=== PATIENT | female | born 1930 | race Caucasian/White ===

== ENCOUNTER → 2016-12-09 | Outpatient (CLI) | payer BC ==
[~2016-12-09] MED LIST: AMLO-114 PO; CALC500C70 PO; IBUP-1050 PO; MULT-506 PO; RANI150T3 PO
[2016-12-09 18:12] LABS: URINE APPEARANCE CLEAR (CLEAR); URINE BILIRUBIN NEG (NEG); URINE COLOR YELLOW; URINE NITRITE NEG (NEG); URINE PH 6.5 (4.5-7.5); URINE SPECIFIC GRAVITY 1.012 (1.000-1.030); UROBILINOGEN NEG (NEG)
[2016-12-09 18:20] LABS: MANUAL MICROSCOPIC REQUIRED? NO; REVIEW REQ? NO
== END | disposition home or self-care (01) ==
LOC: C.LABMFLN 13:42
PROVIDERS: ATTEND Family Medicine
DX: N39.0 Urinary tract infection, site not specified (principal)

== ENCOUNTER → 2016-12-14 | Outpatient (CLI) | payer BC ==
[~2016-12-14] MED LIST changes: +ASPEC81 PO; +CLB200 PO; +ONDA8TAB6 PO; +POLYSOL4 OP; +PSYL0.524 PO; +RXC5 PO; +SNK PO
[2016-12-14 14:02] LABS: BLOOD UREA NITROGEN 12 mg/dl (7-18); BUN/CREATININE RATIO 15.9 (10-20); CALCIUM 9.3 mg/dl (8.5-10.1); CARBON DIOXIDE 28 mmol/L (21-32); CHLORIDE 104 mmol/L (98-107); CHOLESTEROL 201 mg/dl (0-200); CREATININE 0.73 mg/dl (0.60-1.20); GLUCOSE 92 mg/dl (70-99); POTASSIUM 3.8 mmol/L (3.5-5.1); SODIUM 139 mmol/L (136-145)
[2016-12-14 14:06] LABS: HDL CHOLESTEROL 68 mg/dl; LDL CHOLESTEROL CALCULATED 112 mg/dl; TRIGLYCERIDES 105 mg/dl (0-150); VERY LOW DENSITY LIPOPROT CALC 21 mg/dl
== END | disposition home or self-care (01) ==
LOC: C.LABMFLN 07:39
PROVIDERS: ATTEND Family Medicine
DX: I10 Essential (primary) hypertension (principal)

== ENCOUNTER 2016-12-17 04:47 | Inpatient (IN) | payer BC, OTHER ==
--- NOTE | 2016-11-18 13:53 | PAT Medication Instructions ---
Service Date Nov 18, 2016. Current Home Medication List Amlodipine (Norvasc), 10 MG PO QAM Calcium/Vitamin D (Os-Shlomo 500 Plus D), 1 TAB PO BID Ibuprofen (Advil), 200 MG PO BID Multivitamin (Multivitamin), 1 TAB PO QAM Ranitidine Hcl (Zantac), 75 MG PO UD PRN for ACID REFLUX Medication Instructions For Your Scheduled Surgery - Check with surgeon for instructions: Ibuprofen (Advil), 200 MG PO BID - Hold the following medications the morning of surgery: Calcium/Vitamin D (Os-Shlomo 500 Plus D), 1 TAB PO BID Multivitamin (Multivitamin), 1 TAB PO QAM Ranitidine Hcl (Zantac), 75 MG PO UD PRN for ACID REFLUX - Take the following medications the morning of surgery with a sip of water: Amlodipine (Norvasc), 10 MG PO QAM - Take the following medications as scheduled the night before surgery: Ranitidine Hcl (Zantac), 75 MG PO UD PRN for ACID REFLUX (if needed) Calcium/Vitamin D (Os-Shlomo 500 Plus D), 1 TAB PO BID (if needed) If you have any questions please call us at [phone] or [phone] or [phone]
--- NOTE | 2016-11-18 14:25 | DIAGNOSTIC IMAGING REPORT ---
CHEST PREADMISSION(PA/LAT) HISTORY: 86 years-old Female PAT preadmission exam. No acute chest complaints. COMPARISON: None available TECHNIQUE: Frontal and lateral views of the chest FINDINGS: Cardiomediastinal and hilar silhouettes are within normal limits. There is no pneumothorax, pleural effusion, focal airspace consolidation or overt pulmonary edema. There is mild right hemidiaphragmatic elevation. There is atherosclerosis of the aorta. Degenerative changes involve the shoulders and spine. There is convex left curvature of the lumbar spine. IMPRESSION: No acute cardiopulmonary process. The above report was generated using voice recognition software. It may contain grammatical, syntax or spelling errors. Electronically signed by: Adan Do M.D. 11/18/2016 2:24 PM Dictated Date/Time: 11/18/2016 2:23 PM
[2016-11-18 14:34] LABS: BASO % 0.5 %; BASO ABS # 0.03 K/uL (0-0.2); COMPLETE YES; EOS % 2.9 %; HEMATOCRIT 42.4 % (37-47); IG% 0.2 %; LYMPH % 31.2 %; LYMPH ABS # 1.83 K/uL (1.2-3.4); MEAN CORPUSCULAR HEMOGLOBIN 29.4 pg (25-34); MEAN CORPUSCULAR HGB CONC 34.2 g/dl (32-36); MEAN PLATELET VOLUME 10.9 fL (7.4-10.4); MONO % 11.4 %; NEUT % 53.8 %; PLATELET COUNT 166 K/uL (130-400); RED BLOOD COUNT 4.93 M/uL (4.2-5.4); WHITE BLOOD COUNT 5.87 K/uL (4.8-10.8)
[2016-11-18 14:42] LABS: URINE APPEARANCE CLEAR (CLEAR); URINE BILIRUBIN NEG (NEG); URINE COLOR YELLOW; URINE NITRITE NEG (NEG); URINE PH 6.5 (4.5-7.5); URINE SPECIFIC GRAVITY 1.016 (1.000-1.030); UROBILINOGEN NEG (NEG); ZZUR CULT IF INDIC CLEAN CATCH NO
[2016-11-18 14:45] LABS: MANUAL MICROSCOPIC REQUIRED? NO; REVIEW REQ? NO
[2016-11-18 14:53] LABS: PROTHROMBIN TIME (PATIENT) 10.2 SECONDS (9.0-12.0)
[2016-11-18 14:58] LABS: BUN/CREATININE RATIO 14.4 (10-20); CALCIUM 9.6 mg/dl (8.5-10.1); CREATININE 0.8 mg/dl (0.60-1.20); POTASSIUM 3.6 mmol/L (3.5-5.1)
[2016-11-19 06:45] LABS: ESTIMATED AVERAGE GLUCOSE 111 mg/dl; HA1C FLAG Normal (Normal)
--- NOTE | 2016-12-14 17:40 | History and Physical ---
History & Physical Date Dec 14, 2016. Chief Complaint Right knee pain History of Present Illness The patient is a 86 year old female with complaints of Right knee pain. She states the pain has been going on for some time. She has tried cortisone injections, physical therapy and NSAIDs with no relief. She would like to proceed with a right total knee arthroplasty. Past Medical/Surgical History PMHx: Hypertension, Osteoarthritis, GERD PSHx: Bladder surgery Additional History Hepatic Disease: No Endocrine Disorder: No Kidney Disease: No Hypertension: Yes Heart Disease: No Bleeding Tendencies: No Infectious Diseases: No Allergies Coded Allergies: No Known Allergies (Unverified , 11/18/16) Home Medications Scheduled Amlodipine (Norvasc), 10 MG PO QAM Calcium/Vitamin D (Os-Shlomo 500 Plus D), 1 TAB PO BID Ibuprofen (Advil), 200 MG PO BID Multivitamin (Multivitamin), 1 TAB PO QAM Scheduled PRN Ranitidine Hcl (Zantac), 75 MG PO UD PRN for ACID REFLUX Physical Examination Skin: warm/dry, no rash Eyes: normal inspection, EOMI ENT: normal ENT inspection Head: normocephalic, atraumatic Neck: supple, no adenopathy Respiratory/Chest: lungs clear, normal breath sounds Cardiovascular: regular rate, rhythm, no murmur Abdomen / GI: normal bowel sounds Extremities: normal inspection, + pertinent finding (ROM 0-90. Medial joint line tenderness, ligaments are intact) Neurologic/Psych: no motor/sensory deficits, alert, oriented x 3 Diagnosis Primary osteoarthritis of the right knee Plan of Treatment Patient is scheduled for a right total knee arthroplasty. She has failed conservative therapies which include cortisone injections, PT, and NSAIDs. She would like to proceed with a right total knee arthroplasty. Risks and benefits were discussed with the patient. Patient understands the risks of surgery and she would like to proceed. All questions were answered to her satisfaction. She will be on aspirin 81mg BID for DVT prophylaxis and would like to go home with home health.
[2016-12-17] VITALS (10 sets, daily range): BP systolic 117–151; BP diastolic 63–74; PULSE 72–80; TEMP 36.3–36.5; O2SAT 95–100; Ht 147.3 cm; Wt 66.0 kg
[~2016-12-17] VITALS: Ht 147.3 cm; Wt 66.0 kg
[~2016-12-17 04:47] MED LIST changes: -ASPEC81 PO; -CLB200 PO; -ONDA8TAB6 PO; -POLYSOL4 OP; -PSYL0.524 PO; -RXC5 PO; -SNK PO
[2016-12-17] MEDS ORDERED: POLYSOL4 OP (05:54)
[2016-12-17] MEDS ORDERED: PSYL0.524 PO (05:55)
[2016-12-17] MEDS ORDERED: METOCLOPRAMIDE HCL 10 MG TAB PO SCH (06:00)
[2016-12-17] MEDS ORDERED: OXYCODONE HCL 10 MG TABCR (OXYCONTIN) PO SCH (06:00)
[2016-12-17] MEDS ORDERED: CeleBREX 200 MG CAP PO SCH (06:00)
[2016-12-17] MEDS ORDERED: LACTATED RINGER'S 1000ML 1,000 ML IV SCH (06:00)
[2016-12-17] MEDS ORDERED: FAMOTIDINE 20 MG TAB PO SCH (06:00)
[2016-12-17] MEDS ORDERED: CEFAZOLIN 1000MG IV PUSH 5 ML IV SCH (06:00)
[2016-12-17] MEDS ORDERED: LACTATED RINGER'S 1000ML IV SCH (06:00)
[2016-12-17] MEDS ORDERED: DEXAMETHASONE 4 MG TAB PO SCH (06:00)
[2016-12-17] MEDS ORDERED: GABAPENTIN 300 MG CAP PO SCH (06:00)
[2016-12-17] MEDS ORDERED: ROPIVACAINE 5MG/ML 30 ML 150 MG, BUPIVACAINE/EPINEPHR 0.5% MPF 30 ML, KETOROLAC TROMETH... INFIL SCH ×7 (06:00)
[2016-12-17] MEDS ORDERED: ACETAMINOPHEN 500 MG TAB PO SCH (06:00)
[2016-12-17] MEDS ORDERED: LACTATED RINGER'S 1000ML 500 ML IV ONE (06:00)
[2016-12-17] MEDS ORDERED: LIDOCAINE HCL 2% 2 ML VIAL (20MG/ML) ONE (06:20)
[2016-12-17] MEDS ORDERED: PROPOFOL IV EMULSION 10 MG/ML 20 ML VIAL IV ONE (06:20)
[2016-12-17] MEDS ORDERED: MIDAZOLAM HCL 1 MG/ML 2ML VIAL ONE ×2 (06:21→07:40)
[2016-12-17] MEDS ORDERED: BUPIVACAINE 0.5 % 5 MG/1 ML PF 10ML VIAL ONE (06:36)
[2016-12-17] MEDS: TRANEXAMIC ACID INJ 1,000 MG in SODIUM CHLORIDE 0.9% 100ML 100 ML IV SCH ×2 (06:56→10:47)
[2016-12-17] MEDS ORDERED: ORTHO JOINT ANESTHETIC ONE (06:58)
[2016-12-17] MEDS ORDERED: BACITRACIN 50000 UNIT VIAL ONE (06:58)
[2016-12-17] MEDS ORDERED: POVIDONE-IODINE OP SOLN 30 ML BTL ONE (06:58)
--- NOTE | 2016-12-17 07:04 | History & Physical Bridge Note ---
H&P Re-Evaluation Bridge Note: I have examined the patient, reviewed the History & Physical and in the interval since the performance of the History & Physical I have noted the following changes of clinical significance: No changes noted
[2016-12-17] MEDS ORDERED: EpHEDrine SULFATE 50MG/5ML SYR ONE (08:35)
--- NOTE | 2016-12-17 08:54 | [facility] Operative Report ---
Operative Report Operative Date Dec 17, 2016. Pre-Operative Diagnosis Primary osteoarthritis of right knee Post-Operative Diagnosis same as pre-operative Procedure(s) Performed Right total knee arthroplasty-cemented Surgeon Dr. Mcdonald Sailing Master Surgeon(s) JIGNA Mercado Estimated Blood Loss 20ml Findings ABOVE Specimens Specimen A: Right knee bone and tissue Drains 2 hemovac Anesthesia spinal Complication(s) None Disposition Recovery Room / PACU Indications 86 yo female with long-standing osseous surgeries right knee. She valgus deformity approximately 15. She is [id number] lateral compartment. She still conservative measures including anti-inflammatories, cortisone injection, rehabilitation. She is to proceed with a right total knee arthroplasty. Description of Procedure Risks benefits and alternatives of surgery including but not limited to infection, DVT, pain, stiffness, need for surgery, damage to blood vessels, damage to nerves or risks of anesthesia were discussed with the patient and they wished to proceed. The patient was identified and the laterality was confirmed and marked. They received a preoperative antibiotic as well as a spinal anesthetic and an abductor canal block. A well-padded tourniquet was applied and then the limb was prepped and draped in standard manner with ChloraPrep. The limb was exsanguinated and the tourniquet was inflated. I made a standard anterior incision. I sharply incised the skin then utilized Bovie electrocautery as well as the aqua mantis to achieve hemostasis. I made a medial parapatellar arthrotomy immobilized the patella laterally. I then excised the anterior horns of the medial and lateral meniscus as well as the infrapatellar fat pad. I elevated a portion of the MCL off of the tibia. I then pinned into place a patient-matched distal femoral cutting guide and made my distal femoral resection. I then pinned into place the 5 in 1 femoral cutting guide. The initial femoral cut was a little shallow so we added a distal femoral cutting guide and took an additional 2 mm to get into the trochlear groove. I made my anterior, posterior and chamfer cuts. I then excised the cruciates and the remaining portions of the menisci. I then pinned into place a patient- matched tibial cutting guide and made my tibial resection. I then pinned into place the tibial plate a utilizing alignment eunice to confirm rotation. The tibia cut I felt was a little bit and valgus so we took an external tibial cutting guide and a revision cut. I then checked my alignment once again and needed to take just a little bit more off the lateral side and now satisfied that we had good straight cut and good alignment to the tibia. I then cut for the post. Utilizing a lamina boat camp operator and I then removed posterior osteophytes off the femur. I then placed a trial femur into position and cut for the trochlear component. I then sequentially trialed to size the polyethylene until there was good soft tissue balancing and range of motion. She was rather lax on the medial side due to her prior large valgus deformity and needed to use a constrained liner to give her appropriate stability. I then prepared the patella with a freehand cut utilizing sagittal saw. I sized and drilled for the patella. There was good tracking to the patella no lateral release was needed. All the trial components were removed. The deep tissues were anesthetized with an ortho mix solution. Then with Simplex HV with gentamicin cement, I cemented my definitive components. Definitive components, Andino and Nephew Katelyn 2: Femur 3 Tibia 3 Poly 15 constrained Patella 29 oval A betadine soak was performed. A deep drain was placed. The arthrotomy was closed with interrupted #1 Vicryl suture subcutaneous tissue was closed with interrupted 2-0 Vicryl suture. The skin was closed with with Prineo adelso. A Prevena wound VAC was placed. A Silverlon was placed. Sterile dressings were applied. All needle and sponge counts were correct at the end of the procedure patient was transferred to the PACU in stable condition without apparent complication. The PA-C was necessary for assistance with procedure for assistance in positioning, prepping, draping, retraction and closure. I attest to the content of the Intraoperative Record and any orders documented therein. Any exceptions are noted below.
[2016-12-17] MEDS ORDERED: ONDANSETRON INJ 2 MG/ML 2 ML VIAL IV PRN ×2 (09:00→09:45)
[2016-12-17] MEDS ORDERED: ATROPINE SULFATE 0.1 MG/ML 5ML SYR IV PRN (09:00)
[2016-12-17] MEDS ORDERED: FENTANYL CITRATE INJ 50 MCG/1 ML 2 ML VIAL IV PRN (09:00)
[2016-12-17] MEDS ORDERED: EpHEDrine SULFATE INJ 50 MG/ML AMP IV PRN (09:00)
[2016-12-17] MEDS ORDERED: D5W AND 1/2NSS + 20MEQ KCL 1,000 ML IV SCH (09:31)
[2016-12-17] MEDS ORDERED: SOD PHOSPHATE/SOD BIPHOSPHATE ENEMA 132 ML BTL PR PRN (09:45)
[2016-12-17] MEDS ORDERED: MoRPHine SULFATE 2 MG/ML CARP IV PRN (09:45)
[2016-12-17] MEDS ORDERED: BISACODYL 10 MG SUPP PR PRN (09:45)
[2016-12-17] MEDS ORDERED: MAGNESIUM HYDROXIDE SUSP 30 ML UDC PO PRN (09:45)
[2016-12-17] MEDS ORDERED: ZOLPIDEM TARTRATE 5 MG TAB PO PRN (09:45)
[2016-12-17] MEDS ORDERED: ALUMINUM/MAGNESIUM/SIMETH (MAALOX MAX) 30 ML UDC PO PRN (09:45)
[2016-12-17] MEDS ORDERED: RANITIDINE HCL 150 MG TAB PO PRN (09:45)
--- NOTE | 2016-12-17 10:01 | DIAGNOSTIC IMAGING REPORT ---
RIGHT KNEE 2 VIEWS History: Right total knee arthroplasty. Degenerative arthritis. Postop. FINDINGS: The patient is status post a right total knee arthroplasty. The hardware is intact. No fracture or dislocation. Skin adelso and surgical drains are in place. IMPRESSION: Right total knee arthroplasty. No evidence for hardware complication. Electronically signed by: Luiz Jj M.D. 12/17/2016 9:59 AM Dictated Date/Time: 12/17/2016 9:59 AM
--- NOTE | 2016-12-17 10:42 | Anesthesiology Progress Note ---
Anesthesia Post Op Note Date & Time Dec 17, 2016 at 10:41 Vital Signs Pain Intensity: 0 Vital Signs Past 12 Hours Date Time Temp Pulse Resp B/P (MAP) Pulse Ox O2 Delivery O2 Flow Rate FiO2 12/17/16 10:19 36.4 73 13 117/64 (81) 99 Nasal Cannula 2.0 12/17/16 10:00 36.3 71 12 116/52 97 Nasal Cannula 2 12/17/16 09:50 79 17 118/57 98 Nasal Cannula 2 12/17/16 09:40 80 12 131/53 100 Nasal Cannula 2 12/17/16 09:31 36.5 76 16 116/52 98 Nasal Cannula 2 12/17/16 05:40 36.5 76 20 146/63 98 Room Air Notes Mental Status: alert / awake / arousable, participated in evaluation Pt Amnestic to Procedure: Yes Nausea / Vomiting: adequately controlled Pain: adequately controlled Airway Patency, RR, SpO2: stable & adequate BP & HR: stable & adequate Hydration State: stable & adequate Neuraxial Anesthesia: was administered, sensory block is resolving Anesthetic Complications: no major complications apparent
[2016-12-17] MEDS: SODIUM CHLORIDE 0.9% 1000ML 1,000 ML IV SCH ×2 (11:49→21:28)
[2016-12-17] MEDS: FERROUS GLUCONATE 324 MG TAB PO SCH ×2 (11:58→18:37)
[2016-12-17] MEDS: CEFAZOLIN IV 1,000 MG in SYRINGE 0 ML IV SCH (16:18)
[2016-12-17] MEDS: OXYCODONE HCL IR 5 MG TAB (IMMEDIATE RELEASE) PO PRN (18:38)
[2016-12-17] MEDS: DOCUSATE SODIUM 100 MG CAP PO SCH (21:27)
[2016-12-17] MEDS: CeleBREX 200 MG CAP PO SCH (21:27)
[2016-12-17] MEDS: OXYCODONE HCL 10 MG TABCR (OXYCONTIN) PO SCH (21:27)
[2016-12-17] MEDS: ASPIRIN 81 MG ECTAB PO SCH (21:27)
[2016-12-17] MEDS: CALCIUM 600MG + VIT D 400 IU TAB PO SCH (21:27)
[2016-12-17] MEDS: SENNA 8.6 MG TAB PO SCH (21:28)
[2016-12-18] VITALS (7 sets, daily range): BP systolic 66–133; BP diastolic 36–67; PULSE 72–86; TEMP 36.2–37.1; O2SAT 96–99
[2016-12-18] MEDS: CEFAZOLIN IV 1,000 MG in SYRINGE 0 ML IV SCH (00:28)
[2016-12-18 06:08] LABS: HEMATOCRIT 30.7 % (37-47); MEAN CELL VOLUME 85.8 fL (80-100); MEAN CORPUSCULAR HEMOGLOBIN 28.5 pg (25-34); MEAN CORPUSCULAR HGB CONC 33.2 g/dl (32-36); MEAN PLATELET VOLUME 10.9 fL (7.4-10.4); PLATELET COUNT 122 K/uL (130-400); RED BLOOD COUNT 3.58 M/uL (4.2-5.4); WHITE BLOOD COUNT 12.18 K/uL (4.8-10.8)
[2016-12-18 06:12] LABS: PROTHROMBIN TIME (PATIENT) 10.9 SECONDS (9.0-12.0)
[2016-12-18 06:51] LABS: BUN/CREATININE RATIO 18.6 (10-20); CALCIUM 8.5 mg/dl (8.5-10.1); CREATININE 0.61 mg/dl (0.60-1.20); POTASSIUM 3.7 mmol/L (3.5-5.1)
[2016-12-18] MEDS: SODIUM CHLORIDE 0.9% 1000ML 1,000 ML IV SCH (07:30)
--- NOTE | 2016-12-18 08:32 | Orthopedic Progress Note ---
Orthopedic Progress Note Date of Service Dec 18, 2016. Subjective Post OP Day: 1 Reports: feeling well, Denies: chest pain, SOB, nausea / vomiting, light headedness, calf pain Objective calves soft nontender, N/V intact, capillary refill less than 2 sec., dressing C /D/I, A&O x3, toes mobile, hemovac drainage (125/25CC PER SHIFT) Date Time Temp Pulse Resp B/P (MAP) Pulse Ox O2 Delivery O2 Flow Rate FiO2 12/18/16 08:16 36.2 79 18 133/66 (88) 97 Room Air 12/18/16 07:15 Room Air 12/18/16 03:12 36.6 85 18 126/67 (86) 97 Room Air 12/18/16 00:25 Room Air 12/17/16 23:16 36.5 77 16 136/65 (88) 95 Room Air 12/17/16 19:04 36.3 75 16 124/74 (91) 96 Room Air 12/17/16 16:15 98 Room Air 12/17/16 15:57 36.4 80 18 151/74 (99) 99 Nasal Cannula 2.0 12/17/16 13:20 74 16 130/74 (92) 100 Nasal Cannula 3.0 12/17/16 12:25 72 16 133/69 (90) 100 Nasal Cannula 2.0 12/17/16 10:46 73 16 120/64 (82) 100 Nasal Cannula 2.0 12/17/16 10:20 98 Nasal Cannula 2.0 12/17/16 10:20 98 Nasal Cannula 2.0 12/17/16 10:19 36.4 73 13 117/64 (81) 99 Nasal Cannula 2.0 12/17/16 10:00 36.3 71 12 116/52 97 Nasal Cannula 2 12/17/16 09:50 79 17 118/57 98 Nasal Cannula 2 12/17/16 09:40 80 12 131/53 100 Nasal Cannula 2 12/17/16 09:31 36.5 76 16 116/52 98 Nasal Cannula 2 Laboratory Results 24 Hours: Test 12/18/16 05:44 Hematocrit 30.7 % Hemoglobin 10.2 g/dL Prothromb Time International Ratio 1.0 Prothrombin Time 10.9 SECONDS Assessment & Plan Assessment: POD#1 SP RIGHT TKA Plan: PT/OT DVT PROPH- ASA BID PAIN MANAGEMENT- MOMO, TYLENOL [place] PLANNING- HOME HEALTH TUESDAY
[2016-12-18] MEDS: OXYCODONE HCL 10 MG TABCR (OXYCONTIN) PO SCH ×2 (08:51→20:44)
[2016-12-18] MEDS: CeleBREX 200 MG CAP PO SCH ×2 (08:51→20:42)
[2016-12-18] MEDS: PANTOprazole SOD 40 MG TAB PO SCH (08:51)
[2016-12-18] MEDS: AMLODIPINE BESYLATE 5 MG TAB PO SCH (08:51)
[2016-12-18] MEDS: DOCUSATE SODIUM 100 MG CAP PO SCH ×2 (08:51→20:41)
[2016-12-18] MEDS: MULTIVITAMIN TAB PO SCH (08:52)
[2016-12-18] MEDS: ASPIRIN 81 MG ECTAB PO SCH ×2 (08:52→20:41)
[2016-12-18] MEDS: CALCIUM 600MG + VIT D 400 IU TAB PO SCH ×2 (08:52→20:41)
[2016-12-18] MEDS: FERROUS GLUCONATE 324 MG TAB PO SCH ×3 (08:52→17:24)
[2016-12-18] MEDS ORDERED: MULTIVITAMIN TAB PO SCH (09:00)
[2016-12-18] MEDS: OXYCODONE HCL IR 5 MG TAB (IMMEDIATE RELEASE) PO PRN (19:28)
[2016-12-18] MEDS: SENNA 8.6 MG TAB PO SCH (20:41)
[2016-12-19 07:14] VITALS: BP 139/73; PULSE 79; TEMP 37.1; O2SAT 97
--- NOTE | 2016-12-19 08:15 | Orthopedic Progress Note ---
Orthopedic Progress Note Date of Service Dec 19, 2016. Subjective Post OP Day: 2 Reports: feeling well, Denies: complaints, chest pain, SOB, nausea / vomiting, light headedness, calf pain Objective calves soft nontender, N/V intact, capillary refill less than 2 sec., dressing C /D/I (SILVERLON), A&O x3, toes mobile Date Time Temp Pulse Resp B/P (MAP) Pulse Ox O2 Delivery O2 Flow Rate FiO2 12/19/16 07:14 37.1 79 18 139/73 (95) 97 Room Air 12/18/16 23:45 Room Air 12/18/16 23:24 37.1 86 16 120/65 (83) 96 Room Air 12/18/16 19:10 Room Air 12/18/16 15:55 36.9 75 18 124/61 (82) 99 Room Air 12/18/16 15:53 Room Air 12/18/16 13:24 72 120/66 (84) 98 Room Air 12/18/16 10:25 81 106/57 (73) 98 Nasal Cannula 2.0 12/18/16 10:10 78 66/36 (46) 97 Room Air 12/18/16 08:16 36.2 79 18 133/66 (88) 97 Room Air Assessment & Plan Assessment: POD#2 SP RIGHT TKA Plan: PT/OT DVT PROPH- ASA BID PAIN MANAGEMENT- MOMO, TYLENOL DC PLANNING- DC HOME WITH HOME PT TODAY
[2016-12-19] MEDS ORDERED: SNK PO (08:17)
[2016-12-19] MEDS ORDERED: ONDA8TAB6 PO (08:17)
[2016-12-19] MEDS ORDERED: ASPEC81 PO (08:17)
[2016-12-19] MEDS ORDERED: CLB200 PO (08:17)
[2016-12-19] MEDS ORDERED: RXC5 PO (08:17)
--- NOTE | 2016-12-19 08:17 | Discharge Instructions ---
Discharge Instructions Date of Service Dec 19, 2016. Admission Reason for Admission: Right Knee Osteoarthritis Discharge Discharge Diagnosis / Problem: SP RIGHT TKA Discharge Goals Goal(s): Decrease discomfort, Improve function, Increase independence Activity Recommendations Activity Limitations: per Instructions/Follow-up section . Instructions / Follow-Up Instructions / Follow-Up ACTIVITY RECOMMENDATIONS: SELF CARE INSTRUCTIONS AFTER TOTAL KNEE REPLACEMENT A. You may need to continue a physical therapy program after discharge from the hospital. There are several options available to you. Your doctor will assist you in selecting the best one for you. 1. An out-patient facility 2 to 3 times a week for therapy or home therapy. 2. Continue working on all exercises taught to you in the hospital. Your goals should be to increase bending of your knee to 90 degrees and beyond and to fully straighten your knee. B. You may progress at your own pace from walking with a walker or crutches to a cane; then to no assistive devices. C. Make walking a part of your daily routine. Be up as much as comfortable with rest periods throughout the day. Rest with leg elevation is very important. Use the ice wrap frequently for the first 3-4 weeks. D. There are no restrictions on activities. You may ride in a car, shop, participate in associate counsel and all social activities. E. Wear the long elastic stockings (IVY hose) 20 hours a day for 2 weeks after surgery. They can be removed several times a day for laundering and for a bath. F. You may shower, no tub baths until cleared by your doctor. SPECIAL CARE INSTRUCTIONS: VERY IMPORTANT TO READ AND REVIEW A. There are a few signs you need to watch for after you are home. Call [facility] [place] if you notice any of the followin. Increased severe knee pain. Some pain is expected especially when you exercise. 2. Increased swelling in your leg or knee; pain or swelling of the calf muscle in either lower leg. 3. Any fluid drainage from the incision. 4. Shortness of breath or chest pain. B. Please call [facility] [place] at if you have any concerns or questions about your operation or recovery. The doctor or his nurse will return your call promptly. C. You must take antibiotics before dental work, bladder, bowel or other surgery. Your doctor will provide you with a permanent care to carry describing this precaution. IMPORTANT: * REMEMBER TO TAKE ASPIRIN, 81 MG, TWICE DAILY FOR 4 WEEKS UNLESS OTHERWISE DIRECTED. THIS IS YOUR BLOOD THINNER. * HIGH RISK PATIENTS MAY BE PRESCRIBED A STRONGER BLOOD THINNER. THIS WILL BE PROVIDED AT DISCHARGE. * CALL IF INCREASED PAIN, REDNESS, DRAINAGE OR FEVER GREATER THAT 101. * WEAR IVY HOSE 20 HOURS PER DAY FOR 2 WEEKS. * YOU MAY HAVE A LARGE BAND-AID LIKE DRESSING (SILVERON). THIS WILL REMAIN ON YOUR INCISION FOR 7 DAYS, THEN CAN BE REMOVED. IF INCISION IS LEAKING THROUGH DRESSING, CALL THE OFFICE . FOLLOW UP VISIT: If appointment is not already scheduled: Please call [facility] [place] to make a follow-up appointment for 2 weeks after your surgery at . Current Hospital Diet Patient's current hospital diet: Regular Diet Discharge Diet Recommended Diet: Regular Diet Procedures Procedures Performed: Right total knee arthroplasty-cemented Pending Studies Studies pending at discharge: no Laboratory Results Hemoglobin A1c Test 11/18/16 13:58 Range/Units Estimated Average Glucose 111 mg/dl Hemoglobin A1c 5.5 4.5-5.6 % Lipid Panel Test 12/14/16 07:44 Range/Units Triglycerides Level 105 0-150 mg/dl Cholesterol Level 201 H 0-200 mg/dl HDL Cholesterol 68 mg/dl Cholesterol/HDL Ratio 3.0 LDL Cholesterol, Calculated 112 mg/dl Medical Emergencies . Who to Call and When: Medical Emergencies: If at any time you feel your situation is an emergency, please call 911 immediately. . Non-Emergent Contact Non-Emergency issues call your: Surgeon . "Provider Documentation" section prepared by Lucía Dickerson. . VTE Core Measure Inpt VTE Proph given/why not?: Other Anticoagulation, T.E.D. Stockings, SCD's [place] Drug Monitoring Program Search Results: patient reviewed within database, no issues identified
[2016-12-19] MEDS: OXYCODONE HCL 10 MG TABCR (OXYCONTIN) PO SCH (08:58)
[2016-12-19] MEDS: MULTIVITAMIN TAB PO SCH (08:59)
[2016-12-19] MEDS: FERROUS GLUCONATE 324 MG TAB PO SCH (08:59)
[2016-12-19] MEDS: CeleBREX 200 MG CAP PO SCH (08:59)
[2016-12-19] MEDS: AMLODIPINE BESYLATE 5 MG TAB PO SCH (08:59)
[2016-12-19] MEDS: DOCUSATE SODIUM 100 MG CAP PO SCH (08:59)
[2016-12-19] MEDS: ASPIRIN 81 MG ECTAB PO SCH ×2 (08:59→10:47)
[2016-12-19] MEDS: CALCIUM 600MG + VIT D 400 IU TAB PO SCH (08:59)
[2016-12-19] MEDS: PANTOprazole SOD 40 MG TAB PO SCH (08:59)
[2016-12-19 09:02] VITALS: BP 139/73; PULSE 79; TEMP 37.1; O2SAT 97
--- NOTE | 2016-12-21 17:55 | Discharge Summary ---
Orthopedic Discharge Summary Admission Date/Reason Dec 17, 2016 at 07:02 Right Knee Osteoarthritis. Discharge Date/Disposition Dec 19, 2016 Home with services Diagnosis Principal Diagnosis: S/P Right Total Knee Arthroplasty Medication Reconciliation as per discharge instructions Admission Physical Exam As per Admitting History & Physical. Hospital Course POD#1 patient was feeling well with no complaints. Dressing was clean, dry and intact. Patient was neurovascularly intact. She participated in PT and did well. She was scheduled to be discharge POD#2 to go home with home health services. POD#2 Patient was feeling well with no complaints. Dressing was clean , dry and intact. She was neurovascularly intact. She was discharge this day home with home health services. Discharge Instructions Please refer to the electronic Patient Visit Report (Discharge Instructions) for additional information.
== END 2016-12-19 11:30 | disposition home health service (06) | DRG 470 ==
LOC: C.ACU 04:47 → C.3E 07:02 → ENRESERV 09:46
PROVIDERS: ADMIT Orthopaedic Surgery; ATTEND Orthopaedic Surgery
PROC: 0SRC0J9 Replacement of Right Knee Joint with Synthetic Substitute, Cemented, Open Approach (ICD-10-PCS; principal; 2016-12-17 07:15)
DX: M17.11 Unilateral primary osteoarthritis, right knee (principal); I10 Essential (primary) hypertension; K21.9 Gastro-esophageal reflux disease without esophagitis

== ENCOUNTER → 2017-02-02 | Outpatient (CLI) | payer BC, OTHER ==
[~2017-02-02] MED LIST changes: +ASPEC81 PO; +CLB200 PO; -IBUP-1050 PO; +ONDA8TAB6 PO; +POLYSOL4 OP; +PSYL0.524 PO; +RXC5 PO; +SNK PO
[2017-02-02 11:59] LABS: HEMATOCRIT 41.7 % (37-47)
== END | disposition home or self-care (01) ==
LOC: C.LABMFLN 08:35
PROVIDERS: ATTEND Family Medicine
DX: D64.9 Anemia, unspecified (principal)